=== PATIENT | male | born 1990 | race Caucasian/White ===

== ENCOUNTER 2021-11-02 17:07 | Emergency (ER) | payer OTHER ==
[~2021-11-02] VITALS: Ht 188 cm; Wt 95.3 kg
--- NOTE | 2021-11-02 17:20 | NUR ---
Dr Cates at the bedside for MSE.
[2021-11-02] MEDS ORDERED: LORA-258 PO (17:23)
[2021-11-02 17:28] VITALS: BP 135/79
--- NOTE | 2021-11-02 17:32 | NUR ---
Patient discharged to home in stable condition. Written and verbal after care instructions given. Patient verbalizes understanding of instructions. Stressed follow up or return to ER for worsening s/s.
== END 2021-11-02 17:32 | disposition home or self-care (01) ==
LOC: ER 17:11
DX: F41.9 Anxiety disorder, unspecified (principal); F14.10 Cocaine abuse, uncomplicated
CPT/HCPCS: A4663